=== PATIENT | female | born 1940 | race African-American/Black ===

== ENCOUNTER 2017-08-04 09:56 | Emergency (ER) | payer OTHER ==
[2017-08-04 10:10] VITALS: BP 186/76
[2017-08-04 11:03] LABS: CALCIUM 9.5 mg/dL (8.5-10.1); CARBON DIOXIDE 26.9 mmol/L (21-32); CHLORIDE SERUM 102 mmol/L (98-107); CREATININE SERUM 1.1 mg/dL (0.6-1.0); GLUCOSE SERUM 117 mg/dL (74-106); POTASSIUM SERUM 4.7 mmol/L (3.5-5.1); SODIUM SERUM 139 mmol/L (136-145)
[2017-08-04 11:07] LABS: ALBUMIN 3.7 g/dL (3.4-5.0); ALKALINE PHOSPHATASE 89 U/L (46-116); ALT/SGPT 17 U/L (14-59); AMYLASE 35 U/L (25-115); AST/SGOT 17 U/L (15-37); BASOPHIL % 0.3 % (0-2); BILIRUBIN TOTAL 0.62 mg/dL (0.20-1.00); LIPASE 74 IU/L (73-393); PLATELET COUNT 385 x10^3mcL (130-400); RED CELL DISTRIBUTION WIDTH 12.6 % (11.5-14.5); TOTAL PROTEIN, SERUM 8.1 g/dL (6.4-8.2)
== END 2017-08-04 12:33 | disposition home or self-care (01) ==
LOC: ED 09:56
PROVIDERS: Emergency Medicine
DX: R10.9 Unspecified abdominal pain (principal); R11.2 Nausea with vomiting, unspecified; J44.9 Chronic obstructive pulmonary disease, unspecified; I10 Essential (primary) hypertension; Z88.0 Allergy status to penicillin; Z88.2 Allergy status to sulfonamides
CPT/HCPCS: 83880; J1885; Q0162

== ENCOUNTER 2019-04-22 14:24 | Emergency (ER) | payer OTHER ==
[~2019-04-22] VITALS: Ht 165.1 cm; Wt 68.5 kg
[2019-04-22 14:28] VITALS: BP 209/116; Ht 165.1 cm; Wt 68.5 kg
== END 2019-04-22 15:55 | disposition home or self-care (01) ==
LOC: ED 14:24
DX: J44.1 Chronic obstructive pulmonary disease with (acute) exacerbation (principal); J20.9 Acute bronchitis, unspecified; I10 Essential (primary) hypertension; Z88.0 Allergy status to penicillin; Z88.2 Allergy status to sulfonamides
CPT/HCPCS: J7512; J7613; J7644

== ENCOUNTER 2020-06-04 13:40 | Emergency (ER) | payer OTHER, SELFPAY ==
[~2020-06-04] VITALS: Ht 165.1 cm; Wt 65.3 kg
[2020-06-04 13:42] VITALS: Ht 165.1 cm; Wt 65.3 kg
[2020-06-04 17:23] LABS: RED CELL DISTRIBUTION WIDTH 12.9 % (11.5-14.5)
[2020-06-04 17:24] LABS: PLATELET COUNT 439 x10^3mcL (130-400)
[2020-06-04 17:28] LABS: CALCIUM 9.8 mg/dL (8.5-10.1); CARBON DIOXIDE 26.9 mmol/L (21-32); CHLORIDE SERUM 93 mmol/L (98-107); CREATININE SERUM 1.2 mg/dL (0.6-1.0); GLUCOSE SERUM 100 mg/dL (74-106); POTASSIUM SERUM 4.1 mmol/L (3.5-5.1); SODIUM SERUM 129 mmol/L (136-145)
[2020-06-04 17:32] LABS: ALBUMIN 4.1 g/dL (3.4-5.0); ALKALINE PHOSPHATASE 94 U/L (46-116); ALT/SGPT 18 U/L (14-59); AMYLASE 38 U/L (25-115); AST/SGOT 21 U/L (15-37); BILIRUBIN TOTAL 0.6 mg/dL (0.20-1.00); LIPASE 62 IU/L (73-393)
[2020-06-04 17:33] LABS: TOTAL PROTEIN, SERUM 8.8 g/dL (6.4-8.2)
[2020-06-04 19:22] VITALS: BP 165/76
== END 2020-06-04 19:20 | disposition home or self-care (01) ==
LOC: ED 13:40
PROVIDERS: Emergency Medicine
DX: R10.13 Epigastric pain (principal); R11.2 Nausea with vomiting, unspecified; J44.9 Chronic obstructive pulmonary disease, unspecified; I10 Essential (primary) hypertension; Z90.49 Acquired absence of other specified parts of digestive tract; Z88.2 Allergy status to sulfonamides; Z88.0 Allergy status to penicillin
CPT/HCPCS: C9113; J2405